=== PATIENT | female | born 1960 ===

== ENCOUNTER 2022-08-23 07:35 | Day surgery (SDC) | payer BC ==
[2022-08-16 15:24] LABS: BASOPHILS % (AUTO) 0.3 % (0-1); EOSINOPHILS # (AUTO) 0.2 X10'3 (0-0.9); EOSINOPHILS % (AUTO) 3.7 % (0-6); LYMPHOCYTES # (AUTO) 1.9 X10'3 (1.1-4.8); LYMPHOCYTES % (AUTO) 31.1 % (21-51); MEAN CORPUSCULAR HEMOGLOBIN 29.8 PG (27.0-31.0); MEAN CORPUSCULAR HGB CONC 33.2 g/dL (33.0-36.5); MEAN CORPUSCULAR VOLUME 89.9 FL (78-98); MEAN PLATELET VOLUME 7.6 FL (7.4-10.4); MONOCYTES # (AUTO) 0.4 X10'3 (0-0.9); MONOCYTES % (AUTO) 7.2 % (2-12); NEUTROPHILS # (AUTO) 3.5 X10'3 (1.8-7.7); NEUTROPHILS % (AUTO) 57.7 % (42-75); PRE OP HEMOGLOBIN 15.9 g/dL (12.0-16.0); PRE OP PLATELET COUNT 248 X10'3 (140-440); RED BLOOD COUNT 5.34 X10'6 (4.20-5.60); RED CELL DISTRIBUTION WIDTH 12.4 % (11.5-14.5)
[2022-08-16 15:29] LABS: ALBUMIN 4.2 G/DL (3.4-5.0); ALBUMIN/GLOBULIN RATIO 1.1 (1.1-1.5); ALKALINE PHOSPHATASE 44 IU/L (46-116); BLOOD UREA NITROGEN 18 MG/DL (7-18); BUN/CREATININE RATIO 27.7 (10.0-20.0); CALCIUM 9.4 MG/DL (8.5-10.1); CHLORIDE 101 MMOL/L (99-107); CREATININE 0.65 MG/DL (0.40-0.90); PRE OP ALT 24 U/L (30-65); PRE OP ANION GAP 5 (8-16); PRE OP AST 17 U/L (10-37); PRE OP BILIRUB, TOTAL 0.5 MG/DL (0.0-1.0); PRE OP GLUCOSE 87 MG/DL (70-104); PRE OP SODIUM 138 MMOL/L (135-145); TOTAL CARBON DIOXIDE 32.2 MMOL/L (24-32); eGFR > 90 ML/MIN
[~2022-08-23] VITALS: Ht 160 cm; Wt 83.0 kg
[2022-08-23] VITALS (15 sets, daily range): BP systolic 97–147; BP diastolic 56–80
[~2022-08-23 07:35] MED LIST: CAL/MAG/ZINC; DICL100G30 TOP; DOCU-148 PO; HYDR12.55 PO; HYDROcodone/acetaminophen 10/325mg tab PO PRN; HYDROmorphone 1 mg/ml syringe IV PRN; HYDROmorphone inj. 0.5 MG/0.5 ML DISP.SYRIN IV PRN; IBUP-1985 PO; LISI20TA28 PO; MULT-1085 PO; OMEG-5 PO; TRAM50TA2 PO; acetaminophen 325mg tablet PO ONE; acetaminophen 325mg tablet PO PRN; bisacodyl 10mg suppository rectal RC PRN; cefazolin 2gm/D5W 100mL 100 ML IV ONE; celeCOXIB 100mg capsule PO ONE; diphenhydrAMINE 25mg capsule PO PRN; famotidine 20mg tablet PO ONE; gabapentin 300mg capsule PO ONE; magnesium hydroxide 30ml (MOM) UD suspension PO PRN; metoclopramide 5 mg/ml inj IV ONE; naloxone 0.4 mg/ml inj IV PRN; ondansetron/PF 4mg/2ml inj IV PRN; oxyCODONE SR 10mg (sust. release) tab -2 tabs (20mg) PO ONE; tranexamic acid inj. 1,000 MG in normal saline IV soln 100ML IV ONE; vancomycin 1,500 MG in NS 300ml IV soln IV ONE
[2022-08-23] MEDS: ringers solution, lacted 1,000 ML IV SCH ×2 (08:33→14:47)
[2022-08-23] MEDS ORDERED: ringers solution, lacted 1,000 ML IV SCH (09:30)
[2022-08-23] MEDS ORDERED: labetalol 20mg/4ml (5mg/ml) syringe IV PRN (09:30)
[2022-08-23] MEDS ORDERED: ondansetron/PF 4mg/2ml inj IV PRN (09:30)
[2022-08-23] MEDS ORDERED: fentaNYL/PF 50MCG/1 ML 2ML syringe IV PRN ×2 (09:30)
[2022-08-23] MEDS ORDERED: morphine 4 MG/ML inj SYRINge IV PRN (09:30)
[2022-08-23] MEDS ORDERED: hydrALAZINE 20mg/ml inj. IV PRN (09:30)
[2022-08-23] MEDS ORDERED: morphine 2 MG/ML inj. syringe IV PRN (09:30)
[2022-08-23] MEDS ORDERED: epiNEPHrine 1 mg/ml inj ONE (10:04)
[2022-08-23] MEDS ORDERED: cloNIDine hcl/PF 100mcg/ml inj ONE (10:04)
[2022-08-23] MEDS ORDERED: ROPIVAcaine 0.5% (5mg/ml) 30ml vial ONE (10:04)
[2022-08-23] MEDS ORDERED: vancomycin 1,000mg inj ONE (10:04)
[2022-08-23] MEDS ORDERED: MIDAZolam 1 MG/ML 5ML VIAL ONE (11:25)
[2022-08-23] MEDS ORDERED: fentaNYL/PF 50MCG/1 ML 2ML syringe ONE (11:25)
[2022-08-23] MEDS: VANCOMYCIN 1,500MG inj. 1,500 MG in normal saline 500ml IV soln 300 ML IV ONE ×2 (11:45→20:00)
[2022-08-23] MEDS ORDERED: ePHEDrine 50MG/ML INJ. ONE (11:59)
--- NOTE | 2022-08-23 13:12 | NUR ---
Received from OR via HOSPITAL BED, accompanied by Anesthesiologist and report given by TI Anesthesiologist. PT WAKING UP. VSS. PT PRESENTS WITH PIV 20G LEFT FOREARM, RIGHT HIP PEDRITO DRESSING C/D/I WITH ICE PACK, KNEE IMMOBILIZER, DISTAL PULSES NOTED. Addendum: 08/23/22 at 1348 by Wesley Cano RN Amended: Links added.
--- NOTE | 2022-08-23 13:57 | NUR ---
PATIENT HAS MET ALL CRITERIA FOR TRANSFER TO ORTHO FLOOR. VSS. DRESSINGS INTACT. BED LOW, CALL LIGHT PRESENT AND 2 RAILS UP. RN PRESENT TO ACCEPT CARE OF PATIENT AND REPORT HAS BEEN CALLED. ALL QUESTIONS ANSWERED TO ACCEPTING RN. Addendum: 08/23/22 at 1400 by Wesley Cano RN Amended: Links added.
--- NOTE | 2022-08-23 14:00 | NUR ---
Patient in room ORTHO 4009. I have received report from Octavio MCCLELLAND and had the opportunity to ask questions and assume patient care.
[2022-08-23] MEDS: potassium cl 20mEq in 1/2 NS 1,000 ML IV SCH ×2 (14:45→23:13)
[2022-08-23] MEDS ORDERED: tranexamic acid inj. 840 MG in normal saline 100ml IV soln 91.6 ML IV ONE (15:00)
[2022-08-23] MEDS: HYDROcodone/acetaminophen 10/325mg tab PO PRN ×3 (15:22→23:13)
--- NOTE | 2022-08-23 18:13 | NUR ---
patient c/o pain medicated as per EMAR only mod effective. Vomited x1. 100mls brownish emesis, patient was eating at the time. Zofran given, will continue to monitor
[2022-08-23] MEDS: gabapentin 300mg capsule PO SCH (20:24)
[2022-08-23] MEDS: ascorbic acid 500mg tablet PO SCH (20:24)
[2022-08-23] MEDS ORDERED: sennosides 8.6mg tablet PO SCH (21:00)
--- NOTE | 2022-08-23 21:30 | NUR ---
Report given to Salima MCCLELLAND
--- NOTE | 2022-08-23 21:49 | NUR ---
Patient in room ORTHO 4009. I have received report from STAS Bay and had the opportunity to ask questions and assume patient care.
[2022-08-24 02:00] VITALS: BP 96/62
[2022-08-24] MEDS: HYDROcodone/acetaminophen 10/325mg tab PO PRN ×2 (03:50→12:50)
[2022-08-24 06:00] VITALS: BP 107/67
--- NOTE | 2022-08-24 06:02 | NUR ---
Problems reprioritized. Patient report given, questions answered & plan of care reviewed with STAS [facility].
--- NOTE | 2022-08-24 06:11 | NUR ---
Patient in room ORTHO 4009. I have received report from STAS Borrego and had the opportunity to ask questions and assume patient care.
[2022-08-24 06:12] LABS: BASOPHILS % (AUTO) 0.3 % (0-1); EOSINOPHILS # (AUTO) 0.1 X10'3 (0-0.9); EOSINOPHILS % (AUTO) 1.8 % (0-6); HEMATOCRIT 38.6 % (35.0-45.0); HEMOGLOBIN 13.2 g/dl (12.0-16.0); LYMPHOCYTES # (AUTO) 1.7 X10'3 (1.1-4.8); LYMPHOCYTES % (AUTO) 25.4 % (21-51); MEAN CORPUSCULAR HEMOGLOBIN 30.5 PG (27.0-31.0); MEAN CORPUSCULAR HGB CONC 34.3 g/dL (33.0-36.5); MEAN CORPUSCULAR VOLUME 89.1 FL (78-98); MEAN PLATELET VOLUME 7.8 FL (7.4-10.4); MONOCYTES # (AUTO) 0.6 X10'3 (0-0.9); MONOCYTES % (AUTO) 8.8 % (2-12); NEUTROPHILS # (AUTO) 4.2 X10'3 (1.8-7.7); NEUTROPHILS % (AUTO) 63.7 % (42-75); PLATELET COUNT 189 X10'3 (140-440); RED BLOOD COUNT 4.33 X10'6 (4.20-5.60); RED CELL DISTRIBUTION WIDTH 12.5 % (11.5-14.5); WHITE BLOOD COUNT 6.5 X10'3 (4.5-11.0)
[2022-08-24 06:27] LABS: ANION GAP 2 (8-16); CHLORIDE 104 MMOL/L (99-107); POTASSIUM 4.9 MMOL/L (3.5-5.1); SODIUM 138 MMOL/L (135-145); TOTAL CARBON DIOXIDE 31.6 MMOL/L (24-32)
[2022-08-24] MEDS ORDERED: lisinopril 20mg tablet PO SCH (08:00)
[2022-08-24] MEDS ORDERED: HYDROchlorothiazide 12.5mg capsule PO SCH (08:00)
[2022-08-24] MEDS ORDERED: multivitamins, therapeutics tablet PO SCH (08:00)
[2022-08-24] MEDS: ascorbic acid 500mg tablet PO SCH (08:16)
[2022-08-24] MEDS: gabapentin 300mg capsule PO SCH ×2 (08:16→12:50)
[2022-08-24] MEDS: potassium cl 20mEq in 1/2 NS 1,000 ML IV SCH (08:16)
[2022-08-24] MEDS ORDERED: aspirin 325mg tablet PO SCH (08:30)
[2022-08-24 10:00] VITALS: BP 123/76
--- NOTE | 2022-08-24 10:59 | NUR ---
Per EMR pt s/p right RAJIV, discharging at this time. Written protein education with ONS coupons and RD contact information mailed to patient's home address found in EMR. Will remain available. Addendum: 08/24/22 at [address] Amended: Links added.
--- NOTE | 2022-08-24 13:45 | NUR ---
PT saw the patient again. Prior to walking BP 136/68 HR 74. After walking BP 88/[address] Toledo so MD is aware. MD recommended education for the patient to drink plenty of fluids to keep her volume up. Will educate the patient.
--- NOTE | 2022-08-24 15:37 | NUR ---
Patient was discharged at 1505 with instructions, verbalizing understanding of instructions in wheelchair accompanied by nursing staff and family going home via private vehicle.All lines and tubes including PIV with cannula intact have been removed. Education has been provided and all questions have been answered. Patient already has a follow up appointment with Dr. Toledo. Patient is stable and appropriate for discharge.
[2022-08-24] MEDS ORDERED: celeCOXIB 100mg capsule PO SCH (20:00)
== END 2022-08-24 15:05 | disposition home or self-care (01) ==
LOC: PAS 07:35 → ORTHO 4S 07:36 → UNDOADMIN 07:36 → ORTHO 4S 08-24 10:45 → PAS 08-24 15:05
PROVIDERS: ATTEND Orthopaedic Surgery
DX: M16.11 Unilateral primary osteoarthritis, right hip (principal); I10 Essential (primary) hypertension; E66.9 Obesity, unspecified; Z68.41 Body mass index [BMI] 40.0-44.9, adult; G89.29 Other chronic pain; Z98.890 Other specified postprocedural states; Z90.49 Acquired absence of other specified parts of digestive tract; Z79.899 Other long term (current) drug therapy; Z82.49 Family history of ischemic heart disease and other diseases of the circulatory system
CPT/HCPCS: 27130; 36415; 72170; 80051; 80053; 82948; 85025; 86885; 86900; 86901; 87081; 97110; 97116; 97161; C1776; J0171; J0690; J0735; J1170; J2250; J2405; J2765; J2795; J3010; J3370; J3480; J3490; J7030; J7060; J7120; Z7506; Z7508; Z7512; 97530; A7000; G0378